=== PATIENT | female | born 1990 | race Caucasian/White ===

== ENCOUNTER 2024-05-19 07:42 | Emergency (ER) | payer MEDICAID, OTHER ==
[~2024-05-19] VITALS: Ht 165.1 cm; Wt 52.3 kg
[~2024-05-19 07:42] MED LIST: PNV1CAPS42 PO
[2024-05-19 07:45] VITALS: BP 121/85; PULSE 87; RESP 22; TEMP 98; O2SAT 96
[2024-05-19 07:58] LABS: COVID AG,FIA SOURCE NASAL SWAB
[2024-05-19] MEDS: KETOROLAC TROMETHAMINE 30 MG/ML VIAL IM ONE (08:24)
[2024-05-19] MEDS: ACETAMINOPHEN 325 MG TABLET PO ONE (08:24)
[2024-05-19 08:34] LABS: INFLUENZA TYPE A NEGATIVE FOR TYPE A (NEGATIVE); INFLUENZA TYPE B NEGATIVE FOR TYPE B (NEGATIVE); SARS-COV2 (COVID) ANTIGEN,FIA Negative (Negative)
== END 2024-05-19 10:33 | disposition home or self-care (01) ==
LOC: EMS 07:42
DX: J06.9 Acute upper respiratory infection, unspecified (principal); B97.89 Other viral agents as the cause of diseases classified elsewhere; R06.02 Shortness of breath; R07.1 Chest pain on breathing; F17.210 Nicotine dependence, cigarettes, uncomplicated; Z20.822 Contact with and (suspected) exposure to COVID-19
CPT/HCPCS: 99284; 71045; 87426; 87804; 96372; J1885